=== PATIENT | male | born 1990 | race Two or more races ===

== ENCOUNTER 2019-08-10 17:33 | Emergency (ER) | payer SELFPAY ==
[~2019-08-10] VITALS: Ht 162.6 cm; Wt 84.8 kg
[~2019-08-10 17:33] MED LIST: PHEN100C70
[2019-08-10 20:10] VITALS: BP 127/77
[2019-08-10] MEDS ORDERED: levETIRAcetam 500 MG TAB PO ONE (20:15)
== END 2019-08-10 20:13 | disposition home or self-care (01) ==
LOC: ER 17:33
DX: R56.9 Unspecified convulsions (principal); F17.210 Nicotine dependence, cigarettes, uncomplicated; Z76.0 Encounter for issue of repeat prescription